=== PATIENT | male | born 1960 | race Caucasian/White ===

== ENCOUNTER 2016-11-21 07:08 | Emergency (ER) | payer BC, OTHER ==
[2016-11-21] MEDS ORDERED: Lidocaine 1% 10 MG/ML - 20 ML VIAL SUBCUT ONE (07:22)
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
[2016-11-21 07:36] VITALS: RESP 16; TEMP 97.7
[2016-11-21] MEDS ORDERED: BACITRACIN 0.9 GM PACKET OINT TOPICAL ONE (07:49)
== END 2016-11-21 07:55 | disposition home or self-care (01) ==
LOC: ER 07:08
DX: S01.112A Laceration without foreign body of left eyelid and periocular area, initial encounter (principal); S00.12XA Contusion of left eyelid and periocular area, initial encounter; W45.8XXA Other foreign body or object entering through skin, initial encounter
CPT/HCPCS: 12011; 99282; J2001

== ENCOUNTER 2016-12-09 23:39 | Emergency (ER) | payer BC ==
[2016-12-09 23:49] VITALS: RESP 18; TEMP 98.6
[2016-12-10] MEDS ORDERED: Amoxicill/Clav 875/125mg Tab 1 TAB TAB PO ONE (00:01)
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
== END 2016-12-10 00:09 | disposition home or self-care (01) ==
LOC: ER 23:39
DX: J01.00 Acute maxillary sinusitis, unspecified (principal); R05 Cough
CPT/HCPCS: 99282